=== PATIENT | female | born 1930 | race Caucasian/White ===

== ENCOUNTER 2016-11-13 18:21 | Inpatient (IN) | payer OTHER ==
--- NOTE | ~2016-11-13 | CR252 ---
[facility] A Service of [facility] RADIOLOGY TEXT RESULTS PATIENT: SEAN YAN LOCATION: [facility] 473-01 : 31 UNIT #: [id number] AGE: [address]: Damion Jaramillo MD SEX: F ORDER DR: [id number] [facility] [address] [place], [place] [address] [id number] I MR#: [id number] Acc #: [id number] NAME: SEAN YAN : 1930 SEX: F STUDY DATE/TIME: 11/13/2016 17:52 UNIT: [facility] ROOM: [facility] STUDY DESCRIPTION: CR Tibia and Fibula 2 Views Lt Attending Physician: Paulina Beltran M.D. Ordering Physician: Dillon Reed M.D. Primary Care Physician: Luisa Salazar M.D. MEDICAL IMAGING REPORT This report is preliminary unless electronic signature is present EXAM Left tibia-fibula, 2 views INDICATIONS 85-year-old female with lower leg pain after falling today. No comparisons. FINDINGS There has been a prior knee arthroplasty. The tibial component has either been removed or is radiolucent. There is no acute fracture. No dislocation. Vascular calcifications. IMPRESSION No acute finding. Dictated by... Donte Pereyra M.D. THIS IS AN ELECTRONICALLY VERIFIED REPORT Donte Pereyra M.D. at 11/14/2016 10:04 AM ARS/psc TD: 11/14/2016 00:40 JOB #: [id number] MEDICAL IMAGING REPORT COPY
--- NOTE | ~2016-11-13 | CR72 ---
[facility] A Service of [facility] RADIOLOGY TEXT RESULTS PATIENT: SEAN YAN LOCATION: [facility] 451 : 31 UNIT #: [id number] AGE: [address]: Damion Jaramillo MD SEX: F ORDER DR: [id number] [facility] [address] [place], [place] [address] [id number] I MR#: [id number] Acc #: [id number] NAME: SEAN YAN : 1930 SEX: F STUDY DATE/TIME: 11/14/2016 6:44 UNIT: [facility] ROOM: [facility] STUDY DESCRIPTION: CR Chest Single View Portable Attending Physician: Damion Jaramillo M.D. Ordering Physician: Ed Arias Pretty M.D. Primary Care Physician: Luisa Salazar M.D. MEDICAL IMAGING REPORT This report is preliminary unless electronic signature is present EXAM Frontal chest 11/14/2016 INDICATION Preop evaluation for left hip surgery. Fell on November 13. Diabetes and hypertension. TECHNIQUE AND COMPARISON Frontal chest compared with 09/06/2015. FINDINGS Cardiac silhouette borderline in size. The aorta is tortuous and mildly ectatic and atherosclerotic. Vascularity unremarkable. There is old healed granulomatous disease. No effusion, dense consolidation, or pneumothorax. Advanced degenerative change of both shoulders. IMPRESSION 1. Old healed granulomatous disease and borderline cardiac size. No definite superimposed active disease. No significant change from 09/06/2015. Dictated by... Kendall Miguel M.D. THIS IS AN ELECTRONICALLY VERIFIED REPORT Kendall Miguel M.D. at 11/14/2016 5:45 PM WES/tashi TD: 11/14/2016 12:00 JOB #: [id number] MEDICAL IMAGING REPORT [facility] A Service of [facility] RADIOLOGY TEXT RESULTS PATIENT: SEAN YAN LOCATION: [facility] 451 : 31 UNIT #: [id number] AGE: [address]: Damion Jaramillo MD SEX: F ORDER DR: MADHAV
--- NOTE | ~2016-11-13 | CR150 ---
[facility] A Service of [facility] RADIOLOGY TEXT RESULTS PATIENT: SEAN YAN LOCATION: [facility] 451 : 31 UNIT #: [id number] AGE: [address]: Damion Jaramillo MD SEX: F ORDER DR: [id number] [facility] [address] [place], [place] [address] [id number] I MR#: [id number] Acc #: [id number] NAME: SEAN YAN : 1930 SEX: F STUDY DATE/TIME: 11/14/2016 11:56 UNIT: [facility] ROOM: [facility] STUDY DESCRIPTION: CR Hip Min 2 Views Lt Attending Physician: Damion Jaramillo M.D. Ordering Physician: David Gonsalves M.D. Primary Care Physician: Luisa Salazar M.D. MEDICAL IMAGING REPORT This report is preliminary unless electronic signature is present EXAM Left hip 4 intraoperative views 11/14/2016 11:56 hours. HISTORY Hip fracture, intramedullary nail placement by Dr. Gonsalves. Fluoroscopy time 0.53 minutes. COMPARISON 11/13/2016. FINDINGS Submitted for interpretation are 4 intraoperative views of the left hip including AP and lateral views. These demonstrate a compression screw through the intertrochanteric fracture with intramedullary nail present from the greater trochanter to the midshaft femur with a single transverse locking screw distally. The femoral head is intact. IMPRESSION Intraoperative views demonstrating ORIF of intertrochanteric left hip fracture. Dictated by... Dulce Diamond M.D. THIS IS AN ELECTRONICALLY VERIFIED REPORT Dulce Diamond M.D. at 11/14/2016 7:09 PM SMM/gz TD: 11/14/2016 15:45 JOB #: [id number] MEDICAL IMAGING REPORT [facility] A Service of [facility] RADIOLOGY TEXT RESULTS PATIENT: SEAN YAN LOCATION: [facility] [address] : 31 UNIT #: [id number] AGE: [address]: Damion Jaramillo MD SEX: F ORDER DR: MADHAV
--- NOTE | ~2016-11-13 | CT52 ---
[facility] A Service of [facility] RADIOLOGY TEXT RESULTS PATIENT: SEAN YAN LOCATION: [place] [address]-01 : 31 UNIT #: [id number] AGE: [address]: Damion Jaramillo MD SEX: F ORDER DR: [id number] [facility] [address] [place], [place] [address] [id number] I MR#: [id number] Acc #: [id number] NAME: SEAN YAN : 1930 SEX: F STUDY DATE/TIME: 11/13/2016 18:16 UNIT: [facility] ROOM: [facility] STUDY DESCRIPTION: CT Cervical Spine Wo Cont Attending Physician: Damion Jaramillo M.D. Ordering Physician: Dillon Reed M.D. Primary Care Physician: Luisa Salazar M.D. MEDICAL IMAGING REPORT This report is preliminary unless electronic signature is present EXAM Cervical spine CT without contrast HISTORY Patient tripped and fell on a deck today. Has a knot on her head. Pain. TECHNIQUE CT of the cervical spine performed in the axial plane without contrast followed by sagittal and coronal reconstructed images. This CT exam was performed with one or more of the following radiation dose reduction techniques: automatic exposure control, adjustment of mA and/or kV according to patient size, and iterative reconstruction. COMPARISON 05/06/2016 FINDINGS There is what appears to be some chronic ossification transverse ligament level of the odontoid process incidentally noted. 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 Sagittal alignment normal allowing for minor degenerative retrolisthesis C6 on C7, stable since prior. There is some endplate spondylosis and loss of disc height at C5-6 and to a lesser extent C6-7. There is facet degenerative change at multiple levels, details provided below. No acute fracture suspected. CT scanning is relatively insensitive for soft tissue assessment when compared to MRI. Limited assessment of degenerative disease is therefore as follows: At C2-3, there is a posterior disc protrusion or bulge with mild flattening of the cord. Facet degenerative change is present, left greater than right, and probably mild left-side bony foraminal narrowing. At C3-4, severe asymmetric left-side facet degenerative change. Milder STS. [facility] A Service of [facility] RADIOLOGY TEXT RESULTS PATIENT: SEAN YAN LOCATION: [facility] 451-01 : 31 UNIT #: [id number] AGE: [address]: Damion Jaramillo MD SEX: F ORDER DR: right-sided facet degenerative change with severe bony foraminal narrowing on the left, milder bony foraminal narrowing on the right, probably a broad posterior disc bulge and mild canal stenosis. At C4-5, bilateral facet degenerative change asymmetrically worse on the right than the left with mild bony foraminal narrowing bilaterally. No bony canal stenosis. At C5-6, facet degenerative change asymmetrically worse on the left than the right with endplate spondylosis and uncovertebral osteophyte formation worse to the left. Severe left-side bony foraminal narrowing. There is a left paramedian endplate osteophyte posteriorly with some focal mass effect on the canal, probably mild bony canal stenosis. Milder bony foraminal narrowing on the right. At C6-7 endplate spondylosis and uncovertebral osteophyte formation bilaterally. Mild left-sided facet degenerative change [id number] bony foraminal narrowing bilaterally. Probably mild bony canal compromise. At C7-T1, bilateral facet degenerative change, worse on the left. No bony canal stenosis. Bony foraminal narrowing worse on the right. Partly seen in the neck is heterogeneous enlargement of the thyroid gland with some mass effect on the right side of the trachea though the trachea is patent. Findings are nonspecific and could be due to goiter but I would recommend correlation with followup thyroid ultrasound since foci of malignancy are not excluded on the basis of the CT scan. Some calcifications are also seen within the abnormally enlarged thyroid gland. IMPRESSION 1. There is no evidence for acute fracture or traumatic malalignment in the cervical spine. 2. There is again multilevel cervical degenerative disease with multiple level canal and bony foraminal impingement. 3. Probable thyroid goiter with marked enlargement of the right lobe. This is however nonspecific on CT scan and correlation with followup thyroid ultrasound is recommended since foci of malignancy are not excluded. Dictated by... Gisela Sims M.D. THIS IS AN ELECTRONICALLY VERIFIED REPORT Gisela Sims M.D. at 11/15/2016 2:16 PM COLLINS/ashutosh TD: 11/14/2016 09:27 JOB #: [id number] [facility] A Service of [facility] RADIOLOGY TEXT RESULTS PATIENT: SEAN YAN LOCATION: [facility] 451-01 : 31 UNIT #: [id number] AGE: [address]: Damion Jaramillo MD SEX: F ORDER DR: MEDICAL IMAGING REPORT COPY
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
--- NOTE | ~2016-11-13 | CR150 ---
[facility] A Service of [facility] & [facility] RADIOLOGY TEXT RESULTS PATIENT: SEAN YAN [facility]: [facility] 473-01 : 31 UNIT #: [id number] AGE: [address]: Damion Jaramillo MD SEX: F ORDER DR: [id number] [facility] [address] [place], [place] [address] [id number] I MR#: [id number] Acc #: [id number] NAME: SEAN YAN : 1930 SEX: F STUDY DATE/TIME: 11/13/2016 17:46 UNIT: [facility] ROOM: [facility] STUDY DESCRIPTION: CR Hip Min 2 Views Lt Attending Physician: Paulina Beltran M.D. Ordering Physician: Dillon Reed M.D. Primary Care Physician: Luisa Salazar M.D. MEDICAL IMAGING REPORT This report is preliminary unless electronic signature is present EXAM Left hip, 2 views INDICATIONS 85-year-old female with left hip pain after falling today. No comparisons are available. FINDINGS There is a acute fracture involving what appears to be the intertrochanteric region of the left hip. There is varus angulation of the distal fracture fragment. No obvious dislocation. Lower lumbar spine degenerative changes. IMPRESSION Acute intertrochanteric fracture of the left hip. Dictated by... Donte Pereyra M.D. THIS IS AN ELECTRONICALLY VERIFIED REPORT Donte Pereyra M.D. at 11/14/2016 10:04 AM MARISOL/john TD: 11/14/2016 00:38 JOB #: [id number] MEDICAL IMAGING REPORT COPY
--- NOTE | ~2016-11-13 | CR72 ---
[facility] A Service of [facility] & [facility] RADIOLOGY TEXT RESULTS PATIENT: SEAN YAN LOCATION: [place] [address]-01 : 31 UNIT #: [id number] AGE: [address]: Damion Jaramillo MD SEX: F ORDER DR: [id number] [facility] [address] [place], [place] [address] [id number] I MR#: [id number] Acc #: [id number] NAME: SEAN YAN : 1930 SEX: F STUDY DATE/TIME: 11/16/2016 00:09 UNIT: [facility] ROOM: [facility] STUDY DESCRIPTION: CR Chest Single View Portable Attending Physician: Damion Jaramillo M.D. Ordering Physician: Yanet Newell M.D. Primary Care Physician: Luisa Salazar M.D. MEDICAL IMAGING REPORT This report is preliminary unless electronic signature is present EXAM Portable chest, 11/16/2016 at 0009 hours. INDICATION Shortness of air and fever that started tonight. Recent hip fracture. FINDINGS AP portable chest compared with 11/15/2016. Heart size stable. Mild atelectasis noted left base. Lungs otherwise are clear except for granulomatous calcifications. No pneumothorax. There is severe degenerative disease in the shoulders. IMPRESSION Minimal left base atelectasis. Lungs are otherwise clear except for granulomatous calcifications. Dictated by... Tim Garcia Jr., M.D. THIS IS AN ELECTRONICALLY VERIFIED REPORT Tim Garcia Jr., M.D. at 11/16/2016 5:29 AM GAUDENCIO/no TD: 11/16/2016 01:38 JOB #: [id number] MEDICAL IMAGING REPORT COPY
--- NOTE | ~2016-11-13 | CT16 ---
[facility] A Service of [facility] RADIOLOGY TEXT RESULTS PATIENT: SEAN YAN LOCATION: [facility] 451-01 : 31 UNIT #: [id number] AGE: [address]: aDmion Jaramillo MD SEX: F ORDER DR: [id number] [facility] [address] [place], [place] [address] [id number] I MR#: [id number] Acc #: [id number] NAME: SEAN YAN : 1930 SEX: F STUDY DATE/TIME: 11/16/2016 16:53 UNIT: [facility] ROOM: [facility] STUDY DESCRIPTION: CT Angio Chest for PE Attending Physician: Damion Jaramillo M.D. Ordering Physician: Maryann De Leon A.P.R.N. Primary Care Physician: Luisa Salazar M.D. MEDICAL IMAGING REPORT This report is preliminary unless electronic signature is present EXAM CT chest with contrast, pulmonary arteriography protocol, 11/16/2016. HISTORY 85-year-old female, hospital inpatient postop hip surgery 11/14/2016, now with respiratory difficulty and decreasing oxygen saturation. Evaluate for postoperative pulmonary embolism. TECHNIQUE This CT exam was performed with one or more of the following radiation dose reduction techniques: automatic exposure control, adjustment of mA and/or kV according to patient size, and iterative reconstruction. CT examination of the chest was performed with IV contrast using pulmonary arteriography protocol. 3-D CTA images of the pulmonary arteries were reformatted. FINDINGS There is poor contrast opacification of the smaller peripheral pulmonary arteries. The examination was repeated without significant improvement, and both sets of images are reviewed. There is no evidence of pulmonary embolism within the main pulmonary arteries or within the large and medium-sized pulmonary arteries within the central and mid lung zones. Smaller peripheral pulmonary arteries cannot be assessed. Thoracic aorta is normal in caliber. Heart size normal. No pericardial effusion. Mild scarring or atelectasis in dependent lung bases. The lungs are otherwise clear, there is no pleural effusion. [facility] A Service of 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 This mass has been present on multiple prior examinations dating back to 2005 and has slowly enlarged. On the most recent prior study of 04/22/2014, the mass measured about 7.1 and 4.8 cm. It currently measures about 7.5 x 5.4 cm. 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 A typical serous cystadenoma is favored, although mucinous cystic tumor is also possible. There is no pancreatic duct dilatation or significant bile duct dilatation. IMPRESSION 1. Technically limited study as noted above. There is no evidence of pulmonary embolism within main pulmonary arteries or within larger pulmonary arteries within the central and mid lung zones. Smaller peripheral pulmonary arteries cannot be assessed on this exam, despite a repeat injection series. 2. No definite active disease within the chest. Mild dependent pulmonary atelectasis. Lungs otherwise clear. 3. 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 This has been present dating back to earlier exams in 2005 and has slowly enlarged as noted above. 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 See above. No pancreatic duct dilatation or significant bile duct dilatation. Dictated by... Dwain Sharp M.D. THIS IS AN ELECTRONICALLY VERIFIED REPORT Dwain Sharp M.D. at 11/17/2016 10:17 AM Walter TD: 11/16/2016 22:37 JOB #: [id number] MEDICAL IMAGING REPORT COPY
--- NOTE | ~2016-11-13 | CT71 ---
[facility] A Service of [facility] & [facility] RADIOLOGY TEXT RESULTS PATIENT: SEAN YAN LOCATION: [facility] 473 : 31 UNIT #: [id number] AGE: [address]: Damion Jaramillo MD SEX: F ORDER DR: [id number] [facility] [address] [place], [place] [address] [id number] I MR#: [id number] Acc #: [id number] NAME: SEAN YAN : 1930 SEX: F STUDY DATE/TIME: 11/13/2016 18:06 UNIT: [facility] ROOM: [facility] STUDY DESCRIPTION: CT Head Wo Contrast Attending Physician: Paulina Beltran M.D. Ordering Physician: Dillon Reed M.D. Primary Care Physician: Luisa Salzaar M.D. MEDICAL IMAGING REPORT This report is preliminary unless electronic signature is present EXAM CT head without contrast, 11/13/2016 INDICATION 85-year-old female with history of fall, knot on head today. COMPARISON 05/06/[address] exam was performed with one or more of the following radiation dose reduction techniques: automatic exposure control, adjustment of mA and/or kV according to patient size, and iterative reconstruction. FINDINGS There is no evidence of intracranial hemorrhage, acute cortical-based infarction, focal mass lesion, or hydrocephalus. Carotid siphon calcifications. Vertebral artery calcifications. The included orbits and paranasal sinuses are unremarkable. The bone windows are unremarkable. IMPRESSION No acute intracranial abnormality. Dictated by... Donte Pereyra M.D. THIS IS AN ELECTRONICALLY VERIFIED REPORT Donte Pereyra M.D. at 11/14/2016 10:04 AM MARISOL/no [facility] A Service of [facility] & [facility] RADIOLOGY TEXT RESULTS PATIENT: SEAN YAN LOCATION: [facility] 473- : 31 UNIT #: [id number] AGE: [address]: Damion Jaramillo MD SEX: F ORDER DR: TD: 11/14/2016 00:48 JOB #: [id number] MEDICAL IMAGING REPORT COPY
--- NOTE | ~2016-11-13 | EKG ---
PATIENT: SEAN YAN UNIT #: [id number] Ventricular Rate: 83 BPM Atrial Rate: 83 BPM P-R Interval: 144 ms QRS Duration: 92 ms Q-T Interval: 386 ms QTC Calculation(Bezet): 453 ms P [place]: 39 degrees Calculated R [place]: -26 degrees Calculated T [place]: 58 degrees Diagnosis Line: Normal sinus rhythm Diagnosis Line: Normal ECG Diagnosis Line: When compared with ECG of 29-JAN-2012 14:29, Diagnosis Line: T wave inversion no longer evident in Anterior Diagnosis Line: leads Diagnosis Line: Confirmed by YAJAIRA DUGAN MD ([id number]) on 11/15/2016 Diagnosis Line: 5:59:37 PM INTERPRETING MD: KAILEE BUCHANAN
--- NOTE | ~2016-11-13 | DS ---
Unit #: [id number] #: [id number] Patient: SEAN YAN [id number] [facility] [address]. [place], [place] [address] [id number] I MR#: [id number] NAME: SEAN YAN ROOM: 451 Age: 85 Sex: F Admission Date: 11/13/2016 : 1930 Discharge Date: 11/17/2016 Attending Physician: Damion Jaramillo M.D. Primary Care Physician: Luisa Salazar M.D. DISCHARGE SUMMARY ADMITTING DIAGNOSIS Fall and left intertrochanteric hip fracture. FURTHER DIAGNOSES 1. Left hip fracture status post nailing. 2. Dementia. 3. History of hypertension. 4. Hyperlipidemia. 5. Diabetes. 6. History of pancreatic mass. 7. Hypothyroidism. 8. Gastroesophageal reflux disease. 9. Anxiety. 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 Gonsalves. HISTORY OF PRESENT ILLNESS The patient is an 85-year-old lady with multiple medical problems, including hypertension, hyperlipidemia, diabetes. She was brought to the emergency room because of a fall. Apparently she was walking on the deck in her socks, got a splinter from the wood, and she fell down with a head injury. HOSPITAL COURSE She was noted to have left hip fracture. Surgery was consulted. She had nailing done. In the hospital course she was also complaining of shortness of breath. To rule out a PE, we got a CT of the chest with contrast done. The CT of the chest did not show any PE, but it revealed her having a pancreatic mass. 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 This has been present since 2005. 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 I went and discussed with the patient's daughters - one of them in the room, and the power of employment attorney, a daughter, on the phone. I explained to both of them about the pancreatic mass and asked them how aggressively they want to pursue it. The patient is confused, and she cannot make any decision at this point. The daughters stated that they will follow with oncology and surgery as an outpatient. I am trying to set up an appointment with Dr. Fernandes with [facility] and with Dr. Mera with oncology for the pancreatic cancer. The family is contemplating about conservative measures at this point. She will be discharged to rehab, and she is instructed to follow with her primary care Unit #: [id number] #: [id number] Patient: SEAN YAN after discharge from rehab. PHYSICAL EXAMINATION ON THE DAY OF DISCHARGE VITAL SIGNS: Temperature 99.4, pulse rate 87, respiratory rate 18, blood pressure 136/64. GENERAL: The patient is alert and oriented to her name. HEENT: Normocephalic, atraumatic. No icterus. PERRLA. Extraocular muscles intact. NECK: Supple. No JVD. HEART: S1, S2. Regular rate and rhythm. ABDOMEN: Soft, nontender. EXTREMITIES: No edema. Normal peripheral pulses. DISCHARGE MEDICATIONS 1. Tylenol 650 q.6 p.r.n. 2. Lovenox 40 mg subcu for 2 weeks. 3. Lyrica 25 mg daily. 4. Paxil 25 mg daily. 5. Metformin 500 mg p.o. b.i.d. 6. Zofran 4 mg q.6 p.r.n. nausea and vomiting. 7. Benadryl 25 mg to 50 mg q.6 p.r.n. itching. 8. Norvasc 5 mg p.o. daily. 9. Bisacodyl 10 mg rectal suppository p.r.n. constipation. 10. Senokot 1 tab p.o. b.i.d. 11. Milk of Magnesia 30 mL p.o. q.6 hours p.r.n. constipation. 12. Simvastatin 10 mg p.o. at bedtime. 13. Losartan 100 mg p.o. daily. 14. NovoLog insulin sliding scale, medium level. 15. Melatonin 3 mg at bedtime. 16. Aspirin 81 mg daily. 17. Hydrocodone 7.5/325 mg 1 tab p.o. q.4-6 hours p.r.n. pain. (Kindly note I am giving at 20 pills mainly because she had surgery, but not giving any other narcotic pills.) 18. Tramadol 50 mg q.6 p.r.n. 19. Synthroid 50 mcg p.o. daily. 20. Amaryl 2 mg p.o. daily. 21. Omnicef 300 mg p.o. b.i.d. for 5 more days for possible urinary tract infection. FOLLOWUP She is instructed to follow up with orthopedic surgery, Dr. Gonsalves, in 2 weeks. She is instructed to follow up with Dr. Fernandes with [facility] and with Dr. Mera with oncology as an outpatient in 2 weeks. DISCHARGE INSTRUCTIONS All the discharge instructions were explained in detail to the patient's daughters. NOTE: Total time spent in her care is 35 minutes. Dictated by... Harpal Meléndez/ami Unit #: [id number] #: [id number] Patient: SEAN YAN TD: 11/17/2016 11:29 JOB #: [id number] DISCHARGE SUMMARY X X DISCHARGE SUMMARY
--- NOTE | ~2016-11-13 | CR169 ---
[facility] A Service of [facility] RADIOLOGY TEXT RESULTS PATIENT: SEAN YAN LOCATION: [facility] 473 : 31 UNIT #: [id number] AGE: [address]: Damion Jaramillo MD SEX: F ORDER DR: [id number] [facility] [address] [place], [place] [address] [id number] MR#: [id number] Acc #: [id number] NAME: SEAN YAN : 1930 SEX: F STUDY DATE/TIME: 11/13/2016 17:43 UNIT: [facility] ROOM: [facility] STUDY DESCRIPTION: CR Knee 2 Views Lt Attending Physician: Paulina Beltran M.D. Ordering Physician: Dillon Reed M.D. Primary Care Physician: Luisa Salazar M.D. MEDICAL IMAGING REPORT This report is preliminary unless electronic signature is present EXAM Left knee series, 11/13/2016 INDICATION Left knee pain after a fall today. PROCEDURE 2 views of the left knee. COMPARISON None. FINDINGS Previous left knee replacement. The tibial component is either radiolucent or absent. No acute fracture, dislocation or joint effusion. IMPRESSION 1. No acute findings. 2. Left knee replacement. The tibial component is either radiolucent or has been removed. Dictated by... Jaime Harry M.D. THIS IS AN ELECTRONICALLY VERIFIED REPORT Jaime Harry M.D. at 11/14/2016 11:40 AM EED/no TD: 11/14/2016 00:46 JOB #: [id number] [facility] A Service of [facility] RADIOLOGY TEXT RESULTS PATIENT: SEAN YAN LOCATION: [facility] 473 : 31 UNIT #: [id number] AGE: [address]: Damion Jaramillo MD SEX: F ORDER DR: MEDICAL IMAGING REPORT COPY
--- NOTE | ~2016-11-13 | OR ---
Unit #: [id number] #: [id number] Patient: SEAN YAN [id number] [address] [place], [place] [address] [id number] I MR#: [id number] NAME: SEAN YAN ROOM: [facility] Date of Procedure: 11/14/2016 Admission Date: 11/13/2016 Surgeon: David Gonsalves M.D. : 1930 Attending Physician: Damion Jaramillo M.D. Primary Care Physician: Luisa Salazar M.D. OPERATIVE REPORT PREOPERATIVE DIAGNOSIS Left intertrochanteric hip fracture. POSTOPERATIVE DIAGNOSIS Left intertrochanteric hip fracture. PROCEDURE PERFORMED Left hip cephalomedullary nail with Ismael natural nail. ENVIRONMENTAL QUALITY ANALYST None. ANESTHESIA General with LMA. COMPLICATIONS None. SPECIMENS None. DRAINS None. SURGICAL IMPLANTS Ismael 11.5 mm short natural nail with 125 degree neck shaft angle. INDICATION FOR PROCEDURE Ms. Yan is an 85-year-old female, who slipped and fallen, landing on her left hip resulting in intertrochanteric hip fracture. She was cleared by the medical service. It was felt that she would benefit from intramedullary nail. Informed consent was obtained. DESCRIPTION OF PROCEDURE On 11/14/2016, the patient was seen in the preoperative holding area, where her surgical site was marked. Preoperative antibiotics were received. H and P and consent updated. She was taken to the operating room and provided general anesthesia. She was moved onto the fracture table. Left lower extremity placed in traction. All bony prominences were well padded. Left hip was prepped and draped in typical sterile fashion. Time-out performed confirming the correct surgical site and procedure. Fluoroscopy brought in. A small incision was made just Unit #: [id number] #: [id number] Patient: SEAN YAN proximal to greater trochanter. A starting awl was placed on the tip of the trochanter and inserted in the femur. A long ball-tipped guidewire advanced down the femur and checked on both AP and lateral planes. Starting reamer placed over this followed by flexible reamers up to 13 mm. It was felt 11.5 mm nail was appropriate. It was assembled on the back table and inserted to the appropriate depth down the femur. A counter incision was made for the hip screw. The guide was placed down to the bone. It was then drilled with the drill tip guidewire into the center-center position of the femoral head on both AP and lateral planes. It was measured and reamed over. The hip screw was then placed. It was then compressed across fracture site. The set screw was placed and locked. At this point, third incision was made distal for a static bicortical screw. The guide was placed down the bone and drilled. It was measured and the screw was placed in standard fashion. Final AP and lateral images of the left hip and femur were taken confirming appropriate placement of hardware and reduction of fracture. The wounds were thoroughly irrigated. Deep tissue closed with 2-0 Vicryl followed by the subcutaneous tissues and mac for skin. Xeroform, 4x4s, ABD pad, and tape placed. The patient was subsequently awakened from general anesthesia and taken to PACU postoperatively in stable condition. POSTOPERATIVE PLAN The patient will be stay in the hospital for few days and will be transferred to a rehab facility. She will be weightbearing as tolerated on the left lower extremity. She will have Lovenox for 2 weeks for DVT prophylaxis. She will have SCDs. She will be on 24-hour antibiotic protocol. No complications encountered during the surgical procedure. Dictated by... David oGnsalves M.D. WILLIAM/mehrdad TD: 11/15/2016 00:38 JOB #: [id number] OPERATIVE REPORT X X PROCEDURE OPERATIVE NOTE
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
--- NOTE | ~2016-11-13 | CR72 ---
[facility] A Service of [facility] RADIOLOGY TEXT RESULTS PATIENT: SEAN YAN LOCATION: [place] [id number] : [birth year] UNIT #: [id number] AGE: [address]: Damion Jaramilol MD SEX: F ORDER DR: [id number] [facility] [address] [place], [place] [address] [id number] I MR#: [id number] Acc #: [id number] NAME: SEAN YAN : 1930 SEX: F STUDY DATE/TIME: 11/15/2016 15:59 UNIT: [facility] ROOM: [facility] STUDY DESCRIPTION: CR Chest Single View Portable Attending Physician: Damion Jaramillo M.D. Ordering Physician: Maryann De Leon A.P.R.N. Primary Care Physician: Luisa Salazar M.D. MEDICAL IMAGING REPORT This report is preliminary unless electronic signature is present EXAM Portable chest 11/15/2016 HISTORY Postop fever after hip replacement, which was done yesterday. COMPARISON STUDIES 11/14 A portable view of the chest obtained. FINDINGS The heart size and vascularity are normal. The lungs are clear. There are marked degenerative changes in the shoulders. IMPRESSION No active disease. Dictated by... Ken Messer M.D. THIS IS AN ELECTRONICALLY VERIFIED REPORT Ken Messer M.D. at 11/16/2016 7:26 AM [place] TD: 11/15/2016 18:30 JOB #: [id number] MEDICAL IMAGING REPORT COPY
[2016-11-13 17:43] LABS: BASOPHIL# 0.1 X10e3 (0-0.3); BASOPHIL% 1.2 % (0-2.5); DIFF IND NO; EOSINOPHIL# 0.3 X10e3 (0-0.7); EOSINOPHIL% 3.3 % (0.0-7.0); HEMATOCRIT 30.8 % (35.0-45.0); HEMOGLOBIN 9.4 gm/dL (12.0-16.0); LYMPHOCYTE% 20.4 % (17.0-45.0); MEAN CELL VOLUME 75.4 FL (83-96); MEAN CORPUSCULAR HEMOGLOBIN 23.1 PG (28-34); MEAN CORPUSCULAR HGB CONC 30.6 g/dL (30-36); MEAN PLATELET VOLUME 8.4 FL (6.5-11.5); MONOCYTE# 0.8 X10e3 (0-1.0); MONOCYTE% 8.7 % (3.0-12.0); NEUTROPHIL# 6.4 X10e3 (1.5-7.1); NEUTROPHIL% 66.4 % (40-75); PLATELET COUNT 274 X10e3 (140-420); RED BLOOD COUNT 4.08 X10e (3.90-5.30); RED CELL DISTRIBUTION WIDTH 16.5 % (11.0-15.5); WHITE BLOOD COUNT 9.7 X10e3 (4.0-10.5)
[2016-11-13 17:58] LABS: PROTHROMBIN TIME (PATIENT) 10.8 SECONDS (9.6-11.5)
[2016-11-13 18:19] LABS: ALBUMIN SERUM 3.6 g/dL (3.5-5.0); BILIRUBIN, DIRECT 0.2 mg/dL (0.0-0.2); BILIRUBIN,INDIRECT 0.5 mg/dL (0.0-0.9); BILIRUBIN,TOTAL 0.7 mg/dL (0.2-2.0); BUN/CREATININE RATIO 17.27; CREATININE SERUM 1.1 mg/dL (0.6-1.4); GLOM FILT RATE Estimated 50.3 mL/min (>60); POTASSIUM 3.8 mmol/L (3.5-5.1); PROTEIN TOTAL SERUM 7.3 g/dL (6.0-8.3)
[~2016-11-13 18:21] MED LIST: ACETAMINOPHEN; ACETAMINOPHEN PO; ALEVE; AMARYL PO; AMARYL2 MG PO; AMLODIPINE BESYL5 MG PO; ASPIRIN81 MG PO; AVALIDE 300-251 TAB PO; AVALIDE PO; CALCIUM + D 6001 TA1 PO; CELEBREX PO; EC-NAPROSYN500 MG PO; FISH OIL 1,0001 CAP PO; GLUCOPHAGE XR500 MG PO; HYZAAR 100-25 T1 TAB PO; LASIX PO; LEVOTHYROXINE50 MCG PO; LIPITOR; LOSARTAN POTAS100 MG PO; LYRICA25 MG PO; METFORMIN HCL500 M1 PO; METFORMIN PO; MOBIC; MOBIC15 MG PO; NORCO 5/325 TAB1 TAB PO; PAIN MEDICATION; PANTOPRAZOLE SO40 MG PO; PAROXETINE HCL25 MG PO; PAXIL CR; SIMVASTATIN20 MG PO; SINGULAIR; SKELAXIN; SYNTHROID; TARKA; TRAMADOL HCL50 M1 PO; ZOCOR PO
[2016-11-13 22:27] LABS: URINE SOURCE CLEAN CATCH
[2016-11-13 22:35] LABS: URINE APPEARANCE CLEAR; URINE BILIRUBIN NEG (NEG); URINE BLOOD NEG (NEG); URINE COLOR YELLOW; URINE GLUCOSE NEG (NEG); URINE KETONE 1+ (NEG); URINE LEUKOCYTE ESTERASE NEG (NEG); URINE NITRATE NEG (NEG); URINE PH 5.5 (5-8); URINE PROTEIN NEG (NEG); URINE SPECIFIC GRAVITY 1.019 (1.003-1.035)
[2016-11-13 22:44] LABS: CULTURE INDICATED? NO
[2016-11-14 03:16] LABS: BASOPHIL# 0.1 X10e3 (0-0.3); BASOPHIL% 0.6 % (0-2.5); EOSINOPHIL# 0.1 X10e3 (0-0.7); EOSINOPHIL% 1.1 % (0.0-7.0); HEMATOCRIT 25.1 % (35.0-45.0); HEMOGLOBIN 7.8 gm/dL (12.0-16.0); LYMPHOCYTE# 1.3 X10e3 (1.0-3.5); LYMPHOCYTE% 14.3 % (17.0-45.0); MEAN CELL VOLUME 75.9 FL (83-96); MEAN CORPUSCULAR HEMOGLOBIN 23.6 PG (28-34); MEAN CORPUSCULAR HGB CONC 31.1 g/dL (30-36); MEAN PLATELET VOLUME 8.5 FL (6.5-11.5); MONOCYTE# 0.8 X10e3 (0-1.0); MONOCYTE% 9.3 % (3.0-12.0); NEUTROPHIL# 6.9 X10e3 (1.5-7.1); NEUTROPHIL% 74.7 % (40-75); PLATELET COUNT 205 X10e3 (140-420); RED BLOOD COUNT 3.31 X10e (3.90-5.30); RED CELL DISTRIBUTION WIDTH 16.6 % (11.0-15.5); WHITE BLOOD COUNT 9.2 X10e3 (4.0-10.5)
[2016-11-14 03:17] LABS: DIFF IND YES
[2016-11-14 03:26] LABS: BUN/CREATININE RATIO 17.5; CALCIUM SERUM 8.3 mg/dL (8.4-10.2); CREATININE SERUM 1.2 mg/dL (0.6-1.4); GLOM FILT RATE Estimated 45.5 mL/min (>60); POTASSIUM 3.7 mmol/L (3.5-5.1)
[2016-11-14 04:35] LABS: ANISOCYTOSIS SL; MICROCYTOSIS MOD; PLATELET ESTIMATE NORMAL (NORMAL)
[2016-11-14 04:36] LABS: HYPOCHROMIA SL
[2016-11-15 02:47] LABS: BASOPHIL# 0.1 X10e3 (0-0.3); BASOPHIL% 0.5 % (0-2.5); EOSINOPHIL# 0.4 X10e3 (0-0.7); EOSINOPHIL% 3.2 % (0.0-7.0); LYMPHOCYTE# 1.6 X10e3 (1.0-3.5); LYMPHOCYTE% 14.2 % (17.0-45.0); MEAN CORPUSCULAR HEMOGLOBIN 24.4 PG (28-34); MEAN CORPUSCULAR HGB CONC 30.8 g/dL (30-36); MEAN PLATELET VOLUME 8.7 FL (6.5-11.5); MONOCYTE# 1.2 X10e3 (0-1.0); MONOCYTE% 11.2 % (3.0-12.0); NEUTROPHIL# 7.8 X10e3 (1.5-7.1); NEUTROPHIL% 70.9 % (40-75); PLATELET COUNT 185 X10e3 (140-420); RED BLOOD COUNT 3.28 X10e (3.90-5.30); RED CELL DISTRIBUTION WIDTH 17.5 % (11.0-15.5)
[2016-11-15 02:53] LABS: DIFF IND NO; MEAN CELL VOLUME 79.2 FL (83-96)
[2016-11-15 03:07] LABS: BUN/CREATININE RATIO 17.69; CALCIUM SERUM 8.2 mg/dL (8.4-10.2); CREATININE SERUM 1.3 mg/dL (0.6-1.4); GLOM FILT RATE Estimated 41.5 mL/min (>60); POTASSIUM 4.4 mmol/L (3.5-5.1)
[2016-11-16 01:44] LABS: URINE APPEARANCE CLEAR; URINE BILIRUBIN NEG (NEG); URINE BLOOD NEG (NEG); URINE COLOR YELLOW; URINE GLUCOSE 100 MG/DL (NEG); URINE KETONE NEG (NEG); URINE LEUKOCYTE ESTERASE 1+ (NEG); URINE NITRATE NEG (NEG); URINE PH 5.5 (5-8); URINE PROTEIN 1+ (NEG); URINE SPECIFIC GRAVITY 1.023 (1.003-1.035)
[2016-11-16 01:47] LABS: CULTURE INDICATED? YES; URINE BACTERIA AUWI NEG (NEGATIVE); URINE SQUAMOUS EPITHELIAL CELL NONE SEEN /[HPF]
[2016-11-16 03:01] LABS: BASOPHIL% 0.4 % (0-2.5); EOSINOPHIL# 0.5 X10e3 (0-0.7); EOSINOPHIL% 5.2 % (0.0-7.0); HEMATOCRIT 23.2 % (35.0-45.0); HEMOGLOBIN 7.4 gm/dL (12.0-16.0); LYMPHOCYTE# 1.3 X10e3 (1.0-3.5); LYMPHOCYTE% 12.5 % (17.0-45.0); MEAN CORPUSCULAR HEMOGLOBIN 24.9 PG (28-34); MEAN PLATELET VOLUME 8.6 FL (6.5-11.5); MONOCYTE# 1.1 X10e3 (0-1.0); MONOCYTE% 10.6 % (3.0-12.0); NEUTROPHIL# 7.2 X10e3 (1.5-7.1); NEUTROPHIL% 71.3 % (40-75); PLATELET COUNT 168 X10e3 (140-420); RED BLOOD COUNT 2.97 X10e (3.90-5.30); WHITE BLOOD COUNT 10.1 X10e3 (4.0-10.5)
[2016-11-16 03:02] LABS: DIFF IND YES
[2016-11-16 03:40] LABS: CALCIUM SERUM 7.9 mg/dL (8.4-10.2); GLOM FILT RATE Estimated 56.1 mL/min (>60); MAGNESIUM 1.5 mg/dL (1.6-3.0); POTASSIUM 3.7 mmol/L (3.5-5.1)
[2016-11-16 03:53] LABS: ANISOCYTOSIS MOD; OVALOCYTES PRESENT; PLATELET ESTIMATE NORMAL (NORMAL)
[2016-11-17 03:40] LABS: BASOPHIL% 0.4 % (0-2.5); EOSINOPHIL# 0.5 X10e3 (0-0.7); EOSINOPHIL% 5.8 % (0.0-7.0); HEMATOCRIT 23.9 % (35.0-45.0); HEMOGLOBIN 7.5 gm/dL (12.0-16.0); LYMPHOCYTE# 0.9 X10e3 (1.0-3.5); LYMPHOCYTE% 10.4 % (17.0-45.0); MEAN CELL VOLUME 78.7 FL (83-96); MEAN CORPUSCULAR HEMOGLOBIN 24.8 PG (28-34); MEAN CORPUSCULAR HGB CONC 31.5 g/dL (30-36); MEAN PLATELET VOLUME 8.8 FL (6.5-11.5); MONOCYTE# 0.9 X10e3 (0-1.0); MONOCYTE% 11.2 % (3.0-12.0); NEUTROPHIL# 6.1 X10e3 (1.5-7.1); NEUTROPHIL% 72.2 % (40-75); PLATELET COUNT 187 X10e3 (140-420); RED BLOOD COUNT 3.04 X10e (3.90-5.30); RED CELL DISTRIBUTION WIDTH 18.3 % (11.0-15.5); WHITE BLOOD COUNT 8.5 X10e3 (4.0-10.5)
[2016-11-17 03:42] LABS: DIFF IND NO
[2016-11-17 04:05] LABS: BLOOD UREA NITROGEN 16 mg/dL (9-23); BUN/CREATININE RATIO 17.77; CALCIUM SERUM 8.4 mg/dL (8.4-10.2); CARBON DIOXIDE 28 mmol/L (22-31); CHLORIDE 105 mmol/L (100-111); CREATININE SERUM 0.9 mg/dL (0.6-1.4); GLOM FILT RATE Estimated ABOVE60 mL/min (>60); GLUCOSE FASTING 141 mg/dL (70-110); MAGNESIUM 1.9 mg/dL (1.6-3.0); POTASSIUM 4.1 mmol/L (3.5-5.1); SODIUM 141 mmol/L (135-145)
[2016-11-17] MEDS ORDERED: PAXIL CR25 MG PO (21:12)
[2016-11-17] MEDS ORDERED: HYDROCODONE-A1 UDTA2 PO (21:14)
[2016-11-17] MEDS ORDERED: DULCOLAX5 M1 PO (21:15)
[2016-11-17] MEDS ORDERED: MILK OF MAGNESIA (21:15)
[2016-11-17] MEDS ORDERED: TYL325 PO (21:15)
[2016-11-17] MEDS ORDERED: ZOFRAN 4 MG4 MG/2 ML INJ (21:18)
[2016-11-17] MEDS ORDERED: MORPHINE 00.5 MG/1 M IV (21:19)
== END 2016-11-17 14:00 | DRG 481 ==
LOC: CED 18:21 → CEDOF 19:30 → C4C 21:55 → C4B 11-14 12:15
PROVIDERS: Emergency Medicine; Internal Medicine; Nurse Practitioner; Orthopaedic Surgery
PROC: 0QS606Z Reposition Right Upper Femur with Intramedullary Internal Fixation Device, Open Approach (ICD-10-PCS; principal; 2016-11-14 09:00)
DX: S72.142A Displaced intertrochanteric fracture of left femur, initial encounter for closed fracture (principal); D62 Acute posthemorrhagic anemia; F03.90 Unspecified dementia, unspecified severity, without behavioral disturbance, psychotic disturbance, mood disturbance, and anxiety; E11.9 Type 2 diabetes mellitus without complications; K21.9 Gastro-esophageal reflux disease without esophagitis; F41.9 Anxiety disorder, unspecified; F32.9 Major depressive disorder, single episode, unspecified; Z96.652 Presence of left artificial knee joint; I10 Essential (primary) hypertension; E78.5 Hyperlipidemia, unspecified; E03.9 Hypothyroidism, unspecified; W01.0XXA Fall on same level from slipping, tripping and stumbling without subsequent striking against object, initial encounter; Y93.9 Activity, unspecified; Y92.018 Other place in single-family (private) house as the place of occurrence of the external cause; Z79.84 Long term (current) use of oral hypoglycemic drugs; Z82.5 Family history of asthma and other chronic lower respiratory diseases; K86.9 Disease of pancreas, unspecified
CPT/HCPCS: 36415; 70450; 71010; 71275; 72125; 73502; 73560; 73590; 76001; 80048; 80076; 81003; 82947; 83735; 85025; 85610; 85730; 86850; 86900; 86901; 86923; 87086; 93005; 94010; 94760; 96374; 96375; 97110; 97162; 97166; 97530; 99291; C1713; G8978-GP; G8979-GP; G8980-GP; G8987-GO; G8988-GO; J0690; J0696; J1650; J1815; J1885; J2270; J2405; J3010; J3475; P9016; Q9967

== ENCOUNTER 2016-11-17 21:13 | Inpatient (IN) | payer OTHER ==
--- NOTE | ~2016-11-17 | CO ---
Unit #: [id number] #: [id number] Patient: SEAN YAN [id number] [place] [address] [facility]. [place], [place] [address] [id number] I MR#: [id number] NAME: SEAN YAN ROOM: [facility] Age: 85 Sex: F Admission Date: 11/17/2016 : 1930 Attending Physician: Stu Mena M.D. Primary Care Physician: Luisa Salazar M.D. CONSULTATION REPORT HISTORY OF PRESENT ILLNESS Ms. Yan is a very pleasant lady with a diagnosis of pancreatic cystic lesion. 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 The lesion that she had has slowly grown over the last several years and it certainly looks like it is a more of a benign lesion than a low-grade malignant lesion; however, you cannot rule that out without a biopsy and there still could be a sampling error. I talked at length with the family about that and they would like to get a biopsy just to prove that it is cystadenoma. She is hospitalized for a fall and fracture of left hip. She is found to be anemic and we are going to work that up as well. PAST MEDICAL HISTORY Hypertension, hyperlipidemia, type 2 diabetes, GERD, anxiety, depression, anemia. PAST SURGICAL HISTORY Left total knee arthroplasty, D and C, liver cyst that was removed in the past. HOME MEDICATIONS Synthroid, simvastatin, losartan, Norvasc, metformin, glimepiride, Paxil, tramadol, aspirin, calcium, vitamin D3, Lyrica. ALLERGIES She is allergic to morphine. SOCIAL HISTORY No alcohol, no drug use. No smoking. FAMILY HISTORY Really noncontributory to the current illness. No history of blood disorders or cancer reported. REVIEW OF SYSTEMS Positive for a little bit of pain in the hip. 12-points is otherwise negative today. PHYSICAL EXAMINATION GENERAL: Shows a well-developed, well-nourished lady, in no acute distress. VITAL SIGNS: Temperature 97.9, pulse 89, respirations 20, blood pressure 118/69, 96% sats on room air. Unit #: [id number] #: [id number] Patient: SEAN YAN HEENT: Eyes show no scleral icterus. Pupils are equal. Mouth is moist. Hearing intact. NECK: Shows no JVP. Trachea midline. LUNGS: Clear. HEART: Regular rate and rhythm. No peripheral edema. ABDOMEN: Soft. There maybe some ascites, but just a little bit distended. No masses otherwise. SKIN: No rashes, ulcers, or nodules. A 12-point exam is otherwise negative. ASSESSMENT Very pleasant lady with cystic pancreatic lesion, that had a slow regular growth over time, certainly looks like a pancreatic cystadenoma. PLAN 1. Plan is to see if we can get this looked at for possible biopsy just to prove that since the family is very worried. 2. I will order studies for her anemia and I will see her in clinic to follow up when she is ready to go back to rehab. I would like to thank for the patient. Dictated by... Ramiro Foster M.D. EDMUNDO/mehrdad TD: 11/18/2016 18:41 JOB #: [id number] CONSULTATION REPORT X X CONSULTATION REPORT
--- NOTE | ~2016-11-17 | HP ---
Unit #: [id number] #: [id number] Patient: SEAN YAN [id number] [facility] [address]. [place], [place] [address] [id number] I MR#: [id number] NAME: SEAN YAN ROOM: [facility] Age: 85 Sex: F Admission Date: 11/17/2016 : 1930 Attending Physician: Stu Mena M.D. Primary Care Physician: Luisa Salazar M.D. HISTORY AND PHYSICAL CHIEF COMPLAINT Anemia. DISCUSSION This is an 85-year-old female who has a past medical history (1) lady with multiple medical problems including hypertension, hyperlipidemia, diabetes, hypothyroid, history of pancreatic mass, GERD, anxiety, depression. She was admitted here in [facility] on 11/13/16 after a fall. She was found to have left hip fracture. Surgery was consulted. She had a nailing done. In the hospital, she was complaining of shortness of breath. CT scan was done to rule out PE. CT chest did not show any pulmonary embolism but revealed having a pancreatic mass, large multicystic neoplasm in the head of pancreas containing macrocystic and microcystic component and a few small septal calcifications that have been present since 2005. It was discussed by the discharge physician with the power of attorney recruiter and, also, family is available today at the bedside. I did discuss also with them regarding pancreas mass. They will follow up with Oncology as outpatient. So, she was eventually discharged today for rehab but the patient was sent back from the detention rehab to the emergency room. As per ER physician, they did not accept the patient. They said the patient needs to have hemoglobin more than 8 to participate in physical therapy. So, they declined and they sent the patient back to the emergency room and eventually been admitted for postop anemia. No new complaints. PAST MEDICAL HISTORY 1. History of recent fall with left intertrochanteric hip fracture status post nailing. 2. History of hypertension. 3. Hyperlipidemia. 4. Diabetes. 5. Hypothyroid. 6. GERD. 7. Anxiety and depression. 8. Questionable history of dementia. 9. History of pancreatic mass on CT scan shows large multicystic neoplasm in the head of pancreas containing macrocystic and microcystic components and few small septal calcifications. PAST SURGICAL HISTORY 1. History of left knee replacement. 2. History of left intertrochanteric hip fracture, recent nailing in October 2016. 3. History of D and C. Unit #: [id number] #: [id number] Patient: SEAN YAN 4. History of cyst on liver, removed. SOCIAL HISTORY She does not smoke, does not drink any alcohol. FAMILY HISTORY Positive for history of asthma. MEDICATION FROM HOSPITAL. 1. Lyrica 25 mg at bedtime. 2. Levothyroxine 50 mcg daily. 3. Losartan 100 mg daily. 4. Amlodipine 5 mg daily. 5. Ultram 50 mg q.6 hours p.r.n. 6. Aspirin 81 mg daily. 7. Paxil 25 mg daily. 8. Hydrocodone 10/325 mg one tablet q.6 hours p.r.n. 9. Colace 5 mg twice daily. 10. Zofran 4 mg IV q.6 hours. 11. Morphine 4 mg IV q.6 hours p.r.n. REVIEW OF SYSTEMS Twelve review of systems negative except history of present illness. PHYSICAL EXAMINATION GENERAL APPEARANCE: Elderly female lying in the bed comfortably, currently not in any distress. She is alert, awake, oriented, not in any distress. CURRENT VITAL SIGNS: Temperature 98.7. Heart rate 78. Respiratory rate 16. Blood pressure 132/76. HEENT: Normocephalic, atraumatic. (2) . Pupils equal and reactive to light and accommodation. Extraocular muscles intact. NECK: Supple. No JVD. HEART: S1, S2. Regular rate and rhythm. ABDOMEN: Soft, nontender. EXTREMITIES: Inspection normal. No cyanosis. No clubbing. No edema. DIAGNOSTIC STUDIES LABORATORY: Workup is the following today: BNP 195. CBC: White count 7.1, hemoglobin 7.8, hematocrit 24.6, platelets 212. Sodium 139, potassium 3.7, chloride 103, glucose 227, BUN 12, creatinine 0.8. INR is one. ASSESSMENT AND PLAN 1. Postop anemia. The patient was discharged today to rehab. The patient was sent back to ER. The rehab declined the admission for hemoglobin less than 8. In view of that, I will admit the patient 23-hour observation and transfuse one unit of packed RBCs to keep the hemoglobin more than 8 and transfer to rehab. 2. Status post recent fall with left intertrochanteric hip fracture status post nailing. 3. History of pancreatic mass, which is a large multicystic neoplasm in the head of pancreas containing macrocystic and microcystic component and a few small septal calcification. Once again I have also discussed with the family. Both daughters are available at bedside and they are aware of those. It has also been discussed with them by the discharging physician. They are aware. 4. Questionable dementia. Unit #: [id number] #: [id number] Patient: SEAN YAN 5. Hypertension. 6. Hyperlipidemia. 7. Diabetes. 8. Hypothyroid. 9. GERD. 10. History of anxiety and depression. 11. DVT prophylaxis. We will place the patient on Lovenox. Dictated by Melba Pizarro M.D. Karla TD: 11/18/2016 11:27 JOB #: [id number] HISTORY AND PHYSICAL X X HISTORY AND PHYSICAL
--- NOTE | ~2016-11-17 | CR72 ---
[facility] A Service of [facility] RADIOLOGY TEXT RESULTS PATIENT: SEAN YAN LOCATION: [facility] [address] : [birth year] UNIT #: [id number] AGE: [address]: Stu Mena MD SEX: F ORDER DR: [id number] [facility] [address] [facility]. [place], [place] [address] [id number] I MR#: [id number] Acc #: [id number] NAME: SEAN YAN : 1930 SEX: F STUDY DATE/TIME: 11/17/2016 19:59 UNIT: [facility] ROOM: [id number] STUDY DESCRIPTION: CR Chest Single View Portable Attending Physician: Stu Mena M.D. Ordering Physician: Eliane Arana M.D. Primary Care Physician: Luisa Salazar M.D. MEDICAL IMAGING REPORT This report is preliminary unless electronic signature is present EXAM Portable chest. DATE OF EXAM 11/17/2016 HISTORY Low oxygen saturation and congestion today. FINDINGS Borderline cardiac enlargement. Pulmonary vascularity is normal. No airspace infiltrates or effusions. Advanced degenerative changes in both shoulders. Calcified right hilar nodes and small calcified granuloma in the right base. IMPRESSION No acute findings and no active disease. Dictated by... Wong Holley M.D. THIS IS AN ELECTRONICALLY VERIFIED REPORT Wong Holley M.D. at 11/18/2016 3:36 PM CHARISSAL/florence TD: 11/18/2016 00:41 JOB #: [id number] MEDICAL IMAGING REPORT COPY
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
--- NOTE | ~2016-11-17 | DS ---
Unit #: [id number] #: [id number] Patient: SEAN YAN [id number] [address] [place], [place] [address] [id number] I MR#: [id number] NAME: SEAN YAN ROOM: 468 Age: 85 Sex: F Admission Date: 11/17/2016 : 1930 Discharge Date: Attending Physician: Homero Moses M.D. Primary Care Physician: Luisa Salazar M.D. DISCHARGE SUMMARY ADDENDUM The patient was held for CT-guided biopsy of pancreatic mass but interventional radiology thought that because of the anatomic location they will not be able to do it. Oncology, Dr. Foster who is covering for Dr. Gamez, has recommended that patient should followup on outpatient basis. Therefore, we will transfer patient to [facility] today and patient will be follow up on outpatient basis. DISPOSITION Patient will be transferred to [facility]. MEDICATIONS Medications are as per medical reconciliation form. The plan was discussed in detail with patient and daughter and they showed complete understanding. Please make note, we have discontinued patient's Bell catheter. Kindly monitor patient's voiding. Please feel free to call us if there are any questions regarding this hospitalization. Dictated by... Harpal Avila/krystal TD: 11/20/2016 11:31 JOB #: [id number] DISCHARGE SUMMARY X Homero Moses MD X DISCHARGE SUMMARY
--- NOTE | ~2016-11-17 | DS ---
Unit #: [id number] #: [id number] Patient: SEAN YAN [id number] [address] [place], [place] [address] [id number] I MR#: [id number] NAME: SEAN YAN ROOM: [facility] Age: 85 Sex: F Admission Date: 11/17/2016 : 1930 Discharge Date: 11/19/2016 Attending Physician: Stu Mena M.D. Primary Care Physician: Luisa Salazar M.D. DISCHARGE SUMMARY DIAGNOSIS ON ADMISSION 1. Anemia secondary to acute blood loss. 2. Pancreatic mass. DISCHARGE DIAGNOSES 1. Anemia secondary to acute blood loss status post transfusion. 2. Recent left hip fracture, status post nailing. 3. Pancreatic mass. 4. Dementia. 5. History of hypertension. 6. Hyperlipidemia. 7. Type 2 diabetes mellitus. 8. Hypothyroidism. 9. Gastroesophageal reflux disease. 10. Anxiety disorder. CONSULTATIONS Dr. Gamez and group in oncology consultation [facility]: The patient's creatinine is 0.9, sodium 141, potassium is 3.6. PT/INR and PTT is normal. WBC is 8.2, hemoglobin is 8.9. Platelet count is 233. Vitamin B12 level was 1120. Ferritin level was 41. Folate level was 17.8. Reticulocyte count was 1.8. Urine culture was negative. IMAGING: Chest x-ray did not reveal any acute finding. HOSPITAL COURSE Aamqqi[age]wfws[age]ydmd-old female who was recently admitted with left hip fracture and underwent nailing and was transferred to [facility] and was transferred back with anemia. As per patient's daughter, the patient was told that facility does not accept any patient with a hemoglobin of less than 8.0, and that is why she was being transferred even though she did not have any acute issues. The patient was admitted back in the hospital and was given blood transfusion. The patient's hemoglobin is stable. Pancreatic mass. 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 At the patient's family request I asked Dr. Gamez to see the patient in consultation. And Dr. Kerr saw the patient in consultation and advised the patient to have a CT guided biopsy Unit #: [id number] #: [id number] Patient: SEAN YAN and follow up on outpatient basis. The patient is scheduled to have a CT guided biopsy done tomorrow and will be transferred back to the facility after that. RECOMMENDATIONS ON DISCHARGE 1. Condition is stable. 2. Activity is as tolerated. DISCHARGE MEDICATIONS 1. Tylenol 325 mg 1-2 q.6h p.r.n. 2. Lovenox 40 mg subcu daily for a total of ten days 3. Lyrica 25 mg q.h.s. 4. Paxil CR 25 mg daily 5. Haldol 0.25 mg p.o. q.h.s. 6. Norvasc 5 mg p.o. daily 7. Dulcolax suppository 5 mg b.i.d. 8. Milk of magnesia 30 mL daily p.r.n. 9. Cozaar 100 mg daily 10. Artificial Tears as needed 11. Enteric coated aspirin 81 mg p.o. daily 12. Hydrocodone 7.5 mg q.6h p.r.n. 13. Synthroid 50 mcg p.o. daily The medications are as per medication reconciliation form, if there is any discrepancy between the dictation and the medication reconciliation form. DISPOSITION The patient will be transferred to rehab. Exit plan has been discussed in detail with the patient's daughter who showed complete understanding. FOLLOWUP The patient should follow up with Dr. Kerr on outpatient basis in two weeks. Dictated by... Harpal Avila TD: 11/19/2016 15:27 JOB #: [id number] DISCHARGE SUMMARY X Homero Moses MD X DISCHARGE SUMMARY
[2016-11-17 20:11] LABS: BASOPHIL# 0.1 X10e3 (0-0.3); BASOPHIL% 0.8 % (0-2.5); EOSINOPHIL# 0.4 X10e3 (0-0.7); EOSINOPHIL% 6.3 % (0.0-7.0); HEMATOCRIT 24.6 % (35.0-45.0); HEMOGLOBIN 7.8 gm/dL (12.0-16.0); LYMPHOCYTE# 0.8 X10e3 (1.0-3.5); LYMPHOCYTE% 11.3 % (17.0-45.0); MEAN CELL VOLUME 78.4 FL (83-96); MEAN CORPUSCULAR HEMOGLOBIN 24.7 PG (28-34); MEAN CORPUSCULAR HGB CONC 31.5 g/dL (30-36); MEAN PLATELET VOLUME 8.1 FL (6.5-11.5); MONOCYTE# 0.7 X10e3 (0-1.0); MONOCYTE% 9.6 % (3.0-12.0); NEUTROPHIL# 5.1 X10e3 (1.5-7.1); PLATELET COUNT 212 X10e3 (140-420); RED BLOOD COUNT 3.14 X10e (3.90-5.30); RED CELL DISTRIBUTION WIDTH 18.6 % (11.0-15.5); WHITE BLOOD COUNT 7.1 X10e3 (4.0-10.5)
[2016-11-17 20:32] LABS: DIFF IND YES; PARTIAL THROMBOPLASTIN TIME 29.2 SECONDS (23.5-31.3); PROTHROMBIN TIME (PATIENT) 10.5 SECONDS (9.6-11.5)
[2016-11-17 20:36] LABS: BLOOD UREA NITROGEN 12 mg/dL (9-23); CALCIUM SERUM 8.6 mg/dL (8.4-10.2); CARBON DIOXIDE 29 mmol/L (22-31); CHLORIDE 103 mmol/L (100-111); CREATININE SERUM 0.8 mg/dL (0.6-1.4); GLOM FILT RATE Estimated ABOVE60 mL/min (>60); GLUCOSE FASTING 227 mg/dL (70-110); POTASSIUM 3.7 mmol/L (3.5-5.1); SODIUM 139 mmol/L (135-145)
[2016-11-17 20:48] LABS: PLATELET ESTIMATE NORMAL (NORMAL)
[2016-11-17 20:49] LABS: ANISOCYTOSIS SL; HYPOCHROMIA SL; MICROCYTOSIS SL
[~2016-11-17 21:13] MED LIST changes: +PAXIL CR25 MG PO
[2016-11-17] MEDS ORDERED: HYDROCODONE-A1 UDTA2 PO (21:14)
[2016-11-17] MEDS ORDERED: TYL325 PO (21:15)
[2016-11-17] MEDS ORDERED: MILK OF MAGNESIA (21:15)
[2016-11-17] MEDS ORDERED: DULCOLAX5 M1 PO (21:15)
[2016-11-17] MEDS ORDERED: ZOFRAN 4 MG4 MG/2 ML INJ (21:18)
[2016-11-17] MEDS ORDERED: MORPHINE 00.5 MG/1 M IV (21:19)
[2016-11-18 03:30] LABS: BASOPHIL% 0.6 % (0-2.5); EOSINOPHIL# 0.4 X10e3 (0-0.7); EOSINOPHIL% 5.8 % (0.0-7.0); HEMATOCRIT 27.5 % (35.0-45.0); HEMOGLOBIN 8.8 gm/dL (12.0-16.0); LYMPHOCYTE# 1.2 X10e3 (1.0-3.5); MEAN CELL VOLUME 78.6 FL (83-96); MEAN CORPUSCULAR HEMOGLOBIN 25.1 PG (28-34); MEAN PLATELET VOLUME 8.1 FL (6.5-11.5); MONOCYTE# 0.8 X10e3 (0-1.0); MONOCYTE% 9.8 % (3.0-12.0); NEUTROPHIL# 5.3 X10e3 (1.5-7.1); NEUTROPHIL% 68.8 % (40-75); PLATELET COUNT 217 X10e3 (140-420); RED CELL DISTRIBUTION WIDTH 18.7 % (11.0-15.5); WHITE BLOOD COUNT 7.7 X10e3 (4.0-10.5)
[2016-11-18 03:31] LABS: DIFF IND NO
[2016-11-18 03:49] LABS: BLOOD UREA NITROGEN 14 mg/dL (9-23); CALCIUM SERUM 8.7 mg/dL (8.4-10.2); CARBON DIOXIDE 27 mmol/L (22-31); CHLORIDE 105 mmol/L (100-111); CREATININE SERUM 0.8 mg/dL (0.6-1.4); GLOM FILT RATE Estimated ABOVE60 mL/min (>60); GLUCOSE FASTING 151 mg/dL (70-110); POTASSIUM 3.8 mmol/L (3.5-5.1); SODIUM 139 mmol/L (135-145)
[2016-11-18 16:40] LABS: IRON SERUM 23 ug/dL (28-170); TOTAL IRON BINDING CAPACITY 298 ug/dL (269-535); TRANSFERRIN 213 mg/dL (192-382); TRANSFERRIN SATURATION 8 % (20-50)
[2016-11-18 17:01] LABS: FOLATE (FOLIC ACID) 17.8 ng/mL (>5.8)
[2016-11-19 02:30] LABS: BASOPHIL# 0.1 X10e3 (0-0.3); BASOPHIL% 0.7 % (0-2.5); EOSINOPHIL# 0.3 X10e3 (0-0.7); EOSINOPHIL% 4.2 % (0.0-7.0); HEMATOCRIT 27.2 % (35.0-45.0); HEMOGLOBIN 8.9 gm/dL (12.0-16.0); LYMPHOCYTE# 1.1 X10e3 (1.0-3.5); LYMPHOCYTE% 13.9 % (17.0-45.0); MEAN CELL VOLUME 78.4 FL (83-96); MEAN CORPUSCULAR HEMOGLOBIN 25.5 PG (28-34); MEAN CORPUSCULAR HGB CONC 32.5 g/dL (30-36); MEAN PLATELET VOLUME 8.3 FL (6.5-11.5); MONOCYTE% 12.1 % (3.0-12.0); NEUTROPHIL# 5.7 X10e3 (1.5-7.1); NEUTROPHIL% 69.1 % (40-75); PLATELET COUNT 233 X10e3 (140-420); RED BLOOD COUNT 3.47 X10e (3.90-5.30); RED CELL DISTRIBUTION WIDTH 19.1 % (11.0-15.5); WHITE BLOOD COUNT 8.2 X10e3 (4.0-10.5)
[2016-11-19 02:42] LABS: DIFF IND NO
[2016-11-19 02:59] LABS: BLOOD UREA NITROGEN 15 mg/dL (9-23); BUN/CREATININE RATIO 16.66; CALCIUM SERUM 8.8 mg/dL (8.4-10.2); CARBON DIOXIDE 28 mmol/L (22-31); CHLORIDE 105 mmol/L (100-111); CREATININE SERUM 0.9 mg/dL (0.6-1.4); GLOM FILT RATE Estimated ABOVE60 mL/min (>60); GLUCOSE FASTING 173 mg/dL (70-110); POTASSIUM 3.6 mmol/L (3.5-5.1); SODIUM 141 mmol/L (135-145)
== END 2016-11-20 20:40 | DRG 812 ==
LOC: CED 21:13 → CEDOF 22:15 → C4C 11-18 01:20
PROVIDERS: Internal Medicine; Internal Medicine Hematology & Oncology; Student in an Organized Health Care Education/Training Program
PROC: 30233N1 Transfusion of Nonautologous Red Blood Cells into Peripheral Vein, Percutaneous Approach (ICD-10-PCS; principal; 2016-11-18)
DX: D62 Acute posthemorrhagic anemia (principal); F01.51 Vascular dementia, unspecified severity, with behavioral disturbance; E11.9 Type 2 diabetes mellitus without complications; F05 Delirium due to known physiological condition; F02.81 Dementia in other diseases classified elsewhere, unspecified severity, with behavioral disturbance; I10 Essential (primary) hypertension; E78.5 Hyperlipidemia, unspecified; E03.9 Hypothyroidism, unspecified; K21.9 Gastro-esophageal reflux disease without esophagitis; F41.9 Anxiety disorder, unspecified; F32.9 Major depressive disorder, single episode, unspecified; Z96.652 Presence of left artificial knee joint; Z79.82 Long term (current) use of aspirin; D13.6 Benign neoplasm of pancreas; Z88.8 Allergy status to other drugs, medicaments and biological substances; Z98.890 Other specified postprocedural states
CPT/HCPCS: 36415; 71010; 80048; 82607; 82728; 82746; 82947; 83010; 83540; 83550; 83880; 85025; 85044; 85610; 85730; 86850; 86870; 86900; 86901; 86905; 86922; 97110; 97116; 97163; 97167; 97530; 97535; 99285; G8978-GP; G8979-GP; G8987-GO; G8988-GO; J1650; J2916; P9016